=== PATIENT | male | born 1960 | race Caucasian/White ===

== ENCOUNTER 2024-08-20 16:23 | Observation (INO) | payer OTHER ==
--- OUTSIDE RECORDS SUMMARY | 2024-08-20 16:27 | XMS REPORT | Continuity of Care Document ---
Author Name Unknown Address [address] [place] [address] [place] [address] thconnect Address [address] [place] [address] [address] [place] [address] Care Team Providers Care Sales And Leasing Agent Name Role Phone DAIANA PEREZ Attending Clinician Unavailab le Encounters Start Date/Time End Date/Time Encounter Type Admission Type Attending Clinicians Care Facility Care Department Encounter ID Source 2021-03-31 05:58:00 2021-03-31 23:59:00 Outpatient DAIANA PEREZ [address]
[2024-08-20] MEDS ORDERED: ACETAMINOPHEN 325 MG TABLET PO PRN (19:39)
[2024-08-20] MEDS ORDERED: LOPERAMIDE HCL 2 MG CAPSULE PO PRN (19:40)
[2024-08-20] MEDS ORDERED: DIPHENHYDRAMINE 25 MG TAB/CAP PO PRN (19:40)
[2024-08-20] MEDS ORDERED: POLYETHYL GLY 3350 17 GM/DOSE PO PRN (19:41)
[2024-08-20] MEDS ORDERED: ONDANSETRON 4 MG/2 ML VIAL IV PRN (19:41)
[2024-08-20] MEDS ORDERED: FUROSEMIDE 100 MG in NA CHLORIDE 0.9% 90 ML IV SCH (20:00)
[2024-08-20 20:40] LABS: Absolute Eosinophils 0.1 K/uL (0-0.5); Absolute Lymphocytes (CBC) 0.3 K/uL (0.7-4.9); Absolute Monocytes 0.2 K/uL (0.1-1.3); Absolute Neutrophil 0.9 K/uL (1.8-8.0); Basophils % 0.7 % (0-1.3); Eosinophils % 3.8 % (0-4.4); Hematocrit 23.6 % (39.6-49.0); Hemoglobin 7.7 g/dL (13.6-17.9); Lymphocytes % 18.5 % (15.3-44.8); MCH 24.3 pg (27.0-35.0); MCHC 32.6 g/dL (32.0-36.0); MCV 74.6 fL (80-100); MPV 8.8 fL (7.6-11.3); Monocytes % 12.6 % (3.3-12.3); Neutrophils % 64.4 % (41.7-73.7); Nucleated Red Blood Cells % 0.1 % (0-0); Platelets 42 thou/uL (152-406); RBC Red Blood Cell Count 3.16 M/uL (4.33-5.43)
--- NOTE | 2024-08-20 20:47 | RAD REPORT ---
EXAM: Chest Single View HISTORY: 64 years Male Dyspnea COMPARISON: 04/17/2021 FINDINGS: LUNGS/PLEURA: Low lung volumes accentuates the pulmonary vasculature. No definite acute process. CARDIAC/MEDIASTINUM: Magnified by portable technique, but may be within normal limits. UPPER ABDOMEN: No significant abnormality. BONES: No acute abnormality. LINES/TUBES/OTHER: N/A IMPRESSION: No definite acute cardiopulmonary disease though limited by low lung volumes. Consider a dedicated PA and lateral to better assess when the patient's condition permits.
[2024-08-20] MEDS: INSULIN REGULAR (HUMAN) 100 UNIT/ML SQ SCH (21:00)
[2024-08-20 21:04] LABS: Blood Morphology Comment NOTED (NOT SEEN); Microcytosis 2+; Ovalocytes 2+; Platelet Estimate DECR; Polychromasia 1+; White Blood Cell Scan OK (OK)
[2024-08-20 21:06] LABS: Albumin 2.4 g/dL (3.4-5.0); Albumin/Globulin Ratio 0.7 (1.1-1.8); Anion Gap 6.8 mEq/L (5.0-15.0); Bilirubin Direct 0.2 mg/dL (0-0.2); Bilirubin Indirect, Calculated 0.4 mg/dL (0.2-0.8); Bilirubin Total 0.6 mg/dL (0.2-1.0); Globulin 3.3 g/dL (2.3-3.5); Magnesium 1.8 mg/dL (1.6-2.4); Phosphorus 2.6 mg/dL (2.5-4.9); Potassium 3.8 mEq/L (3.5-5.1); Protein, Total 5.7 g/dL (6.4-8.2); Thyroid Stimulating Hormone 1.93 uIU/mL (0.358-3.740)
[2024-08-20 21:30] LABS: NT PRO-BNP 66 pg/mL (<125)
[2024-08-20] MEDS: NA CHLORIDE 0.9% 100 ML ONE (22:13)
[2024-08-20] MEDS: FUROSEMIDE 40 MG/4 ML VIAL ONE (22:14)
[2024-08-20 23:08] VITALS: BMI 43.2
[2024-08-21 00:38] LABS: Influenza A Ag Negative; Influenza B Ag Negative; SARS-CoV-2 Antigen Rapid Res Negative (Negative)
[2024-08-21] MEDS ORDERED: SODIUM CHLORIDE 0.9% 10ML INJ IV PRN (08:04)
[2024-08-21 08:33] VITALS: O2SAT 98
[2024-08-21] MEDS ORDERED: FAMOTIDINE 20 MG TAB PO SCH (09:00)
[2024-08-21] MEDS: MAGNESIUM OXIDE 250 MG PO SCH (09:00)
[2024-08-21] MEDS: GLIMEPIRIDE 4 MG PO SCH (09:00)
[2024-08-21] MEDS: SULFASALAZINE 500 MG PO SCH (09:00)
[2024-08-21] MEDS: LOSARTAN POTASSIUM 25 MG PO SCH (09:00)
[2024-08-21 09:16] LABS: Absolute Eosinophils 0.1 K/uL (0-0.5); Absolute Lymphocytes (CBC) 0.3 K/uL (0.7-4.9); Absolute Monocytes 0.2 K/uL (0.1-1.3); Basophils % 0.6 % (0-1.3); Eosinophils % 3.4 % (0-4.4); Hematocrit 28.4 % (39.6-49.0); Hemoglobin 8.9 g/dL (13.6-17.9); Lymphocytes % 17.6 % (15.3-44.8); MCH 23.8 pg (27.0-35.0); MCHC 31.5 g/dL (32.0-36.0); MCV 75.7 fL (80-100); MPV 8.8 fL (7.6-11.3); Monocytes % 11.5 % (3.3-12.3); Neutrophils % 66.9 % (41.7-73.7); Nucleated Red Blood Cells % 0.2 % (0-0); Platelets 54 thou/uL (152-406); RBC Red Blood Cell Count 3.75 M/uL (4.33-5.43)
[2024-08-21] MEDS: SPIRONOLACTONE 25 MG TABLET PO SCH (10:17)
[2024-08-21] MEDS: carvediloL 12.5 MG TAB PO SCH (10:17)
[2024-08-21] MEDS: PANTOPRAZOLE 40 MG INJ IVP SCH (10:17)
[2024-08-21 10:52] LABS: White Blood Cell Scan OK (OK)
[2024-08-21 10:53] LABS: Blood Morphology Comment NOT SEEN (NOT SEEN); Platelet Estimate DECR; Platelets, Giant PRESENT
[2024-08-21 10:59] LABS: Specific Gravity 1.007 (1.005-1.030); Sqamous Epithelial None Seen /HPF (None Seen); Urine Bacteria None Seen /HPF (<20); Urine Bilirubin NEGATIVE (Negative); Urine Blood Negative (Negative); Urine Clarity Clear (Clear); Urine Color Colorless (Yellow); Urine Culture Reflex Order NOT NEEDED; Urine Glucose NEGATIVE (Negative); Urine Ketones NEGATIVE (Negative); Urine Micro Reflex YN NO BILL MICROSCOPIC; Urine Nitrite NEGATIVE (Negative); Urine Protein NEGATIVE (Negative); Urine RBC None Seen /HPF (None Seen); Urine Urobilinogen Normal (Normal); Urine WBC None Seen /HPF (<5); Urine pH 7.5 (5.0-7.0)
[2024-08-21 11:23] LABS: PT Prothrombin Time 15.6 SECONDS (10.0-13.0); PTT, Activated Partial Thromb 35.7 SECONDS (24.3-36.9); Protime INR 1.39
[2024-08-21] MEDS: FLU (Fluarix Triv) TS24-25(6MOS UP)/PF 45 MCG/0.5 ML Syringe IM ONE (12:00)
[2024-08-21 12:01] LABS: MA/CREAT RATIO ND (< 30.0); UR CREAT < 18.0 mg/dL (20-370); UR MICROALBUMIN < 0.5 mg/dL (< 1.9)
--- NOTE | 2024-08-21 12:11 | EKG ---
Test Date: 2024-08-20 Test Time: 23:33:10 [employer] Supervisor: FS MEASUREMENT RESULTS: Intervals: Rate: 80 HI: 172 QRSD: 92 QT: 390 QTc: 449 Occidental: P: 50 HI: 172 QRS: 9 T: 4 INTERPRETIVE STATEMENTS: Normal sinus rhythm Cannot rule out Anterior infarct, age undetermined Abnormal ECG Compared to ECG 05/28/2010 10:08:22 Myocardial infarct finding now present Electronically Signed On 08-21-24 12:10:26 [employer] DIRECTOR by John Leblanc
[2024-08-21 16:31] VITALS: BP 146/76; TEMP 98
[2024-08-21] MEDS: FUROSEMIDE 100 MG in NA CHLORIDE 0.9% 90 ML IV SCH (17:11)
--- NOTE | 2024-08-21 18:00 | P.DS ---
Admission Date: 08/20/24 Discharge Date: 08/21/24 Disposition: ROUTINE DISCHARGE Discharge Condition: [facility] Hospital Course: PATIENT HAS LARGE ASCITES AND HAS WAS TAPPED BY RADIOLOGY. REPORT OF THE FLUID IS PENDING. HE WILL BE ON TWO [employer] FU AT OFFICE. I WILL ARRANGE FOR OUTPATIENT TAP EVERY MONTH OR SO. Vital Signs/Physical Exam: Temp Pulse Resp BP Pulse Ox 98.0 F 83 16 146/76 H 97 08/21/24 16:00 08/21/24 17:10 08/21/24 16:00 08/21/24 17:10 08/21/24 16:00 Laboratory Data at Discharge: WBC 1.50 thou/uL (4.3-10.9) L 08/21/24 08:59 Hgb 8.9 g/dL (13.6-17.9) L D 08/21/24 08:59 Hct 28.4 % (39.6-49.0) L 08/21/24 08:59 Plt Count 54 thou/uL (152-406) L D 08/21/24 08:59 PT 15.6 SECONDS (10.0-13.0) H 08/21/24 11:05 INR 1.39 08/21/24 11:05 APTT 35.7 SECONDS (24.3-36.9) 08/21/24 11:05 Sodium 137 mEq/L (136-145) 08/20/24 20:30 Potassium 3.8 mEq/L (3.5-5.1) 08/20/24 20:30 BUN 8 mg/dL (7-18) 08/20/24 20:30 Creatinine 0.84 mg/dL (0.70-1.30) 08/20/24 20:30 Glucose 147 mg/dL (74-106) H 08/20/24 20:30 Phosphorus 2.6 mg/dL (2.5-4.9) 08/20/24 20:30 Magnesium 1.8 mg/dL (1.6-2.4) 08/20/24 20:30 Total Bilirubin 0.6 mg/dL (0.2-1.0) 08/20/24 20:30 AST 31 U/L (15-37) 08/20/24 20:30 ALT 28 U/L (16-61) 08/20/24 20:30 Alkaline Phosphatase 103 U/L (45-117) 08/20/24 20:30 Home Medications: Ascorbic Acid [Vitamin C] 1,000 mg PO DAILY 08/20/24 Carvedilol [Coreg] 12.5 mg PO BID 08/20/24 Cholecalciferol (Vitamin D3) [Vitamin D3] 50 mcg PO DAILY 08/20/24 Famotidine [Pepcid*] 20 mg PO DAILY 08/20/24 Glimepiride 4 mg PO DAILY 08/20/24 Magnesium Oxide [Magnesium] 250 mg PO DAILY 08/20/24 Omeprazole 20 mg PO DAILY 08/20/24 sulfaSALAzine [Sulfasalazine] 500 mg PO TID 08/20/24 Furosemide 20 mg PO DAILY #90 08/21/24 Spironolactone 100 mg PO DAILY #90 08/21/24 New Medications: Furosemide 20 mg PO DAILY #90 Spironolactone 100 mg PO DAILY #90 Followup: Ubaldo Gracia MD [Primary Care Provider] -
[2024-08-21 19:02] LABS: Body Fluid Source PERITONEAL; Color of fluid Yellow (COLORLESS); Tube # SINGLE
[2024-08-21 19:03] LABS: Appearance SLT. TURBID (CLEAR)
[2024-08-21 19:05] LABS: Body Fluid WBC 61 /mm^3; Fluid Total Cells Count 100
[2024-08-21 19:06] LABS: Body Fluid Lymphocytes 30 %
--- NOTE | 2024-08-22 09:17 | RAD REPORT ---
PROCEDURE: ULTRASOUND GUIDED PARACENTESIS Procedural Provider: Riley Dominguez M.D. Pre-procedure diagnosis: Ascites Post-procedure diagnosis: Same as above. CLINICAL INDICATION: Uncomplicated ascites. Male, 64 years old. Ascites COMPLICATIONS: No immediate complications. IMPRESSION: Ultrasound guided paracentesis, yielding 2000 mL of straw-colored fluid. PLAN: Aspirated fluid was sent for analysis. PROCEDURE DETAILS: Consent: Informed consent for the procedure including risks, benefits and alternatives was obtained a nd time-out was performed prior to the procedure. Preparation: The site was prepared and draped using maximal sterile barrier technique including cutan eous antisepsis. Sedation: None Procedure: Initial limited abdominal ultrasound was performed and a large amount of ascites was seen. A safe window for paracentesis was identified with ultrasound to mohit a suitable access site. Local anesthesia was administered. The peritoneal cavity was accessed, and fluid return confirmed pos ition. A catheter was placed and ascites was drained. The catheter was removed, and a sterile bandage was applied. [id number]. Estimated blood loss: Less than 10 mL.
== END 2024-08-21 18:49 | disposition home or self-care (01) ==
LOC: ERHOLD 16:23 → 2ND 16:52
PROVIDERS: ADMIT Internal Medicine; ATTEND Internal Medicine
DX: R18.8 Other ascites (principal); K74.60 Unspecified cirrhosis of liver; R06.00 Dyspnea, unspecified
CPT/HCPCS: 93005; 85025 ×2; 81001; 80048; 36415 ×2; 86900; 89050; 83735; 86850; 84100; 84157; 85610; 82945; 86901; 82947 ×4; 80076; 85730 ×2; 82652; 84443; 83036; 82570; 82607; 83880; 82043; 71045; 49083; 87428; J1940; J2470; J1815 ×2; 88108; 88305; G0378; G0379